=== PATIENT | female | born 1955 | race African-American/Black ===

== ENCOUNTER 2017-07-05 13:38 | Emergency (ER) | payer OTHER ==
[~2017-07-05] VITALS: Ht 162.6 cm; Wt 59.0 kg
[2017-07-05 13:40] VITALS: BP 168/72
[2017-07-05] MEDS ORDERED: Norco 7.5mg/325mg tab ORAL ONE (15:15)
--- NOTE | 2017-07-05 15:15 | Emergency Room Report ---
History of Present Illness General Chief Complaint: Back Pain-No Injury Source: Patient (Eliza Smith) Present Illness HPI 61-year-old female presents to the emergency department brought by ambulance from outpatient clinic complaining of exacerbation of her chronic back pain x2 days. Patient reports 10 out of 10 in severity pain that is generalized throughout the low back and also radiates down into the right hip. Patient states that today her leg gave out from underneath her due to pain and she is unable to bear weight or move without significant exacerbation of her pain. Patient denies numbness or tingling in the extremities she denies muscular weakness she reports significant pain as her symptoms. Patient states she has a history of pain in the low back and hip. Patient denies urinary incontinence or urinary retention. She denies fevers, chills, recent spinal procedure for history of neoplastic disease. She does report that she had obstructive stone in the left kidney which required surgical removal several years ago. pt. reports hx of seizures and states she is prescribed Klonopin for seizures. Pt. also reports being unable to care for herself especially in the setting of having severe pain. pt. reports being transient at the moment, and does not have a PCP. Denies numbness tingling or loss of sensation or gross motor movements of the extremities, incontinence of bowel or bladder. Denies CP, Palpitations, LOC, AMS, dizziness, Changes in Vision, Sensation, paresthesias, or a sudden severe headache. (Eliza Smith) Allergies: Coded Allergies: No Known Allergies (Unverified , 07/05/17) Patient History Past Medical History: see triage record Past Surgical History: none Pertinent Family History: none Immunizations: UTD Reviewed Nursing Documentation: PMH: Agreed, PSxH: Agreed (Eliza Smith) Nursing Documentation-PMH Past Medical History: No Stated History (Eliza Smith) Review of Systems All Other Systems: negative except mentioned in HPI (Eliza Smith) Physical Exam Vital Signs Date Time Temp Pulse Resp B/P (MAP) Pulse Ox O2 Delivery O2 Flow Rate FiO2 07/05/17 13:35 98.4 86 16 168/72 99 Room Air Sp02 EP Interpretation: reviewed, normal General Appearance: no apparent distress, alert, GCS 15, non-toxic, mild distress Head: normocephalic, atraumatic Eyes: bilateral eye normal inspection, bilateral eye PERRL ENT: hearing grossly normal, normal voice Neck: full range of motion Respiratory: lungs clear, normal breath sounds, no wheezing, speaking full sentences Cardiovascular #1: regular rate, rhythm, normal capillary refill Cardiovascular #2: 2+ dorsalis pedis (R), 2+ dorsalis pedis (L) Gastrointestinal: normal bowel sounds, non tender, soft Rectal: deferred Genitourinary: normal inspection, no CVA tenderness Musculoskeletal: back normal, normal range of motion, tender - Moderate Tenderness to palpation to paraspinal muscles of the lower back in addition to midline ttp, and right lateral hip TTP Neurologic: alert, oriented x3, responsive, motor strength/tone normal, DTRs symmetric, sensory intact, speech normal, no Babinski, no pronator, grossly normal Skin: normal color, no rash, warm/dry, well hydrated (Eliza Smith) Medical Decision Making PA Attestation Dr. Russo is my supervising Physician whom patient management has been discussed with. (Eliza Smith [email or web address]) Diagnostic Impression: Primary Impression: Back pain Qualified Codes: M54.5 - Low back pain; G89.29 - Other chronic pain Additional Impressions: Right hip pain Anterolisthesis ER Course 61-year-old female presents to the emergency department brought by ambulance from outpatient clinic complaining of exacerbation of her chronic back pain x2 days. Patient reports 10 out of 10 in severity pain that is generalized throughout the low back and also radiates down into the right hip. Patient states that today her leg gave out from underneath her due to pain and she is unable to bear weight or move without significant exacerbation of her pain. Patient denies numbness or tingling in the extremities she denies muscular weakness she reports significant pain as her symptoms. Patient states she has a history of pain in the low back and hip. Patient denies urinary incontinence or urinary retention. She denies fevers, chills, recent spinal procedure for history of neoplastic disease. She does report that she had obstructive stone in the left kidney which required surgical removal several years ago. pt. reports hx of seizures and states she is prescribed Klonopin for seizures. Pt. also reports being unable to care for herself especially in the setting of having severe pain. pt. reports being transient at the moment, and does not have a PCP. Denies numbness tingling or loss of sensation or gross motor movements of the extremities, incontinence of bowel or bladder. Denies CP, Palpitations, LOC, AMS, dizziness, Changes in Vision, Sensation, paresthesias, or a sudden severe headache. Ddx considered: epidural abscess, fracture, sprain/strain, meningitis, spinal chord injury just to name a few Vital signs reviewed and are WNL during ED visit. Pt. is afebrile with no signs of infection. No saddle anesthesia noted, Pt. denies incontinence, neurological exam is grossly normal/ intact ROM is limited due to pain * Moderate Tenderness to palpation to paraspinal muscles of the lower back in addition to midline ttp, and right lateral hip TTP . *Pt. describes pain today as severe and radiates across the lower back and down in to the right hip and right LE. ORDERS: -CBC: unremarkable -CMP: unremarkable other than BUN of 30 -UA: Pending -CT PELVIS NO CONTRAST: no acute fracture- Per official radiology report- Please see report for specific details. - CT L-SPINE: No acute fracture or subluxation. L4-5 grade 1 anterolisthesis with broad protrusion and ligamentum flavum hypertrophy. L4- 5 spinal canal and bilateral neural foraminal stenosis---Per official radiology report- Please see report for specific details. INTERVENTIONS: - Warners 7.5 mg -- pt. still has pain on re-evaluation. -Robaxin PO - Tylenol 650mg PO -- At this time I have discussed this pt. with my supervising physician for admission consideration due to intractable pain, and unable to care for her self. DISPOSITION: at this time pt. will be Transfered to Dr. uSzie Doshi for intractable back pain , and transfer is facilitated by supervising physician Dr. Russo. Dr. Suzie Doshi agreed to accept the pt. and to continue pt. care management. Labs Test 07/05/17 19:00 White Blood Count 3.4 K/UL (4.8-10.8) Red Blood Count 5.43 M/UL (4.20-5.40) Hemoglobin 14.1 G/DL (12.0-16.0) Hematocrit 48.5 % (37.0-47.0) Mean Corpuscular Volume 89 FL (80-99) Mean Corpuscular Hemoglobin 26.0 PG (27.0-31.0) Mean Corpuscular Hemoglobin Concent 29.1 G/DL (32.0-36.0) Red Cell Distribution Width 12.9 % (11.6-14.8) Platelet Count 175 K/UL (150-450) Mean Platelet Volume 10.8 FL (6.5-10.1) Neutrophils (%) (Auto) % (45.0-75.0) Lymphocytes (%) (Auto) % (20.0-45.0) Monocytes (%) (Auto) % (1.0-10.0) Eosinophils (%) (Auto) % (0.0-3.0) Basophils (%) (Auto) % (0.0-2.0) Sodium Level 136 MMOL/L (136-145) Potassium Level 4.5 MMOL/L (3.5-5.1) Chloride Level 102 MMOL/L (98-107) Carbon Dioxide Level 25 MMOL/L (21-32) Anion Gap 9 mmol/L (5-15) Blood Urea Nitrogen 30 mg/dL (7-18) Creatinine 1.2 MG/DL (0.55-1.30) Estimat Glomerular Filtration Rate 54.9 mL/min (>60) Glucose Level 90 MG/DL (74-106) Calcium Level 9.7 MG/DL (8.5-10.1) Total Bilirubin 0.9 MG/DL (0.2-1.0) Aspartate Amino Transf (AST/SGOT) 27 U/L (15-37) Alanine Aminotransferase (ALT/SGPT) 23 U/L (12-78) Alkaline Phosphatase 73 U/L (46-116) Total Protein 9.1 G/DL (6.4-8.2) Albumin 3.7 G/DL (3.4-5.0) Globulin 5.4 g/dL Albumin/Globulin Ratio 0.7 (1.0-2.7) (Eliza Smith P.A.) ER Course The patient will be transferred to an outside hospital secondary to insurance purposes I endorsed the patient to Dr. Larsen who has accepted the patient for transfer Patient is stable for transfer (Bee Russo M.D.) Last Vital Signs Date Time Temp Pulse Resp B/P (MAP) Pulse Ox O2 Delivery O2 Flow Rate FiO2 07/05/17 13:40 98.4 84 16 168/72 99 Room Air (Eliza Smith) Disposition: ADMITTED INPATIENT Condition: Serious Scripts No Active Prescriptions or Reported Meds Referrals: [facility]ERR[facility] (PCP) Eliza Smith Jul 05, 2017 15:15 Bee Russo M.D. Jul 05, 2017 20:04
[2017-07-05] MEDS ORDERED: Methocarbamol 750mg tab ORAL ONE (18:15)
[2017-07-05 19:26] LABS: MEAN CORPUSCULAR HGB CONC 29.1 G/DL (32.0-36.0); MEAN CORPUSCULAR VOLUME 89 FL (80-99); MEAN PLATELET VOLUME 10.8 FL (6.5-10.1); PLATELET COUNT 175 K/UL (150-450); RED BLOOD COUNT 5.43 M/UL (4.20-5.40); RED CELL DISTRIBUTION WIDTH 12.9 % (11.6-14.8); WHITE BLOOD COUNT 3.4 K/UL (4.8-10.8)
[2017-07-05 19:38] LABS: ANION GAP 9 mmol/L (5-15); CALCIUM 9.7 MG/DL (8.5-10.1); CARBON DIOXIDE 25 MMOL/L (21-32); CHLORIDE 102 MMOL/L (98-107); CREATININE 1.2 MG/DL (0.55-1.30); GLOMERULAR FILTRATION RATE 54.9 mL/min (>60); POTASSIUM 4.5 MMOL/L (3.5-5.1); SODIUM 136 MMOL/L (136-145)
[2017-07-05 19:42] LABS: ALANINE AMINOTRANSFERASE 23 U/L (12-78); ALBUMIN/GLOBULIN RATIO 0.7 (1.0-2.7); ASPARTATE AMINO TRANSFERASE 27 U/L (15-37); TOTAL PROTEIN 9.1 G/DL (6.4-8.2)
[2017-07-05 20:43] VITALS: BP 152/77
[2017-07-05 21:25] LABS: BAND NEUTROPHILS % (MANUAL) 5 % (0-8); BASOPHILS % (MANUAL) 3 % (0-2); EOSINOPHILS % (MANUAL) 0 % (0-3); LYMPHOCYTES % (MANUAL) 49 % (20-45); NEUTROPHILS % (MANUAL) 31 % (45-75); PLATELET ESTIMATE ADEQUATE; PLATELET MORPHOLOGY NORMAL; TOTAL CELLS COUNTED 100
--- NOTE | 2017-07-07 09:08 | Diagnostic Imaging Report ---
Indications: Chronic pain Technique: Spiral acquisitions obtained through the lumbar spine. Multiplanar reconstructions were generated. No IV contrast utilized. Total dose length product 274.82 mGycm. CTDIvol(s) 9.78 mGy. Dose reduction achieved using automated exposure control Comparison: none Findings: There is slight anterior offset of L4 on L5. There is no associated pars defect. The remaining bony alignment is normal. No acute fractures. No dislocations. Vertebral body heights are preserved. There is very mild degenerative disc narrowing at L4-5 with vacuum formation. The remaining disc spaces are preserved. There is extensive multilevel facet arthrosis. At L2-3 and L3-4 there is mild circumferential annular bulge which results in borderline narrowing of the spinal canal. There is mild neural foraminal stenosis as result of facet arthrosis and the bulging disc. L4-5, the combination of circumferential annular bulge, alignment abnormality, and ligamentum flavum hypertrophy results in moderate narrowing of the spinal canal and of the bilateral neural foramina. At L5-S1, there is circumferential annular bulge which does not significantly compromise the spinal canal. There is mild narrowing of the bilateral neural foramina, predominantly due to facet arthrosis the included extraspinal soft tissues are remarkable for the presence of a right upper pole nonobstructive renal calculus. There is evidence of chronic fibrotic changes of the visualized lung bases Impression: No acute bony trauma Degenerative changes as detailed on a level by level basis above Possible pulmonary fibrotic change-correlate with clinical history and findings Nonobstructive right upper pole renal calculus This agrees with the preliminary interpretation provided overnight by [facility]. The CT scanner at [facility] is accredited by the [employer] and the scans are performed using protocols designed to limit radiation exposure to as low as reasonably achievable to attain images of sufficient resolution adequate for diagnostic evaluation.
--- NOTE | 2017-07-07 09:11 | Diagnostic Imaging Report ---
Indication: Reason For Exam: PAIN Technique: Noncontrast spiral acquisitions obtained through the pelvis. Multiplanar reconstructions generated. Total dose length product 277.05 mGycm. CTDIvol(s) 10.04 mGy. Dose reduction achieved using automated exposure control Comparison: none Findings: No evidence of acute fracture or dislocation. The joint spaces are preserved. Sacroiliac joint spaces are preserved. There is degenerative lumbosacral spondylosis. The included pelvic viscera are unremarkable Impression: No acute process. This agrees with the preliminary interpretation provided overnight by [facility]. The CT scanner at [facility] is accredited by the [employer] and the scans are performed using protocols designed to limit radiation exposure to as low as reasonably achievable to attain images of sufficient resolution adequate for diagnostic evaluation.
== END 2017-07-05 20:50 | disposition short-term general hospital (02) ==
LOC: EDBD 13:38 → EMR 14:23
DX: M54.5 Low back pain (principal); M25.551 Pain in right hip; G89.29 Other chronic pain; M48.061 Spinal stenosis, lumbar region without neurogenic claudication
CPT/HCPCS: 36415; 72131; 72192; 80053; 85007; 85025; 99285